=== PATIENT | male | born 1965 | race African-American/Black ===

== ENCOUNTER 2017-02-28 05:42 | Day surgery (SDC) | payer BC ==
[2017-02-28] VITALS (12 sets, daily range): BP systolic 116–148; BP diastolic 56–89
[~2017-02-28] VITALS: Ht 177.8 cm; Wt 86.2 kg
[2017-02-28] MEDS ORDERED: AMLODIPINE BES2.5 MG ORAL (06:14)
[2017-02-28] MEDS ORDERED: NORVIR100 MG ORAL (06:14)
[2017-02-28] MEDS ORDERED: REYATAZ300 MG ORAL (06:14)
[2017-02-28] MEDS ORDERED: ACYCLOVIR200 MG ORAL (06:14)
[2017-02-28] MEDS ORDERED: Bupivacaine w/Epi 0.5% 30ml Vial INJ ONE (06:55)
[2017-02-28] MEDS ORDERED: LR 1000ml ONE (07:00)
[2017-02-28] MEDS ORDERED: Sterile Water Irrig 1000ml IRRIG ONE (07:00)
[2017-02-28] MEDS ORDERED: fentaNYL 100 mcg/2 mL IV ONE (07:00)
[2017-02-28] MEDS ORDERED: Midazolam 2mg/2ml Inj ONE (07:00)
[2017-02-28] MEDS ORDERED: NS Irrig 1000ml ONE (07:00)
[2017-02-28] MEDS ORDERED: Lidocaine 1% MPF 10mg/ml 5ml ONE (07:00)
[2017-02-28] MEDS ORDERED: Propofol 200mg/20ml IV ONE (07:00)
--- NOTE | 2017-02-28 07:21 | Pre-Procedure Note/Attestation ---
Pre-Procedure Note/Attestation Complete Prior to Procedure Procedure Narrative: excision left forehead soft tissue mass Indications for Procedure Pre-Operative Diagnosis: Left forehead soft tissue mass Attestation I attest that I discussed the nature of the procedure; its benefits; risks and complications; and alternatives (and the risks and benefits of such alternatives ), prior to the procedure, with the patient (or the patient's legal containers sales representative). I attest that, if there was a reasonable possibility of needing a blood transfusion, the patient (or the patient's legal containers sales representative) was given the [facility] standardized written summary, pursuant to the Valentin [place] Kay Blood Safety Act ([place] Health and Safety Code # 1645, as amended). I attest that I re-evaluated the patient just prior to the surgery and that there has been no change in the patient's H&P, except as documented below: NILDA STEARNS Feb 28, 2017 07:21
--- NOTE | 2017-02-28 07:48 | Anethesia Preoperative Eval ---
Anesthesia Pre-op PMH/ROS General Date of Evaluation: Feb 28, 2017 Time of Evaluation: 07:16 Anesthesiologist: Adele ASA Score: ASA 2 Mallampati Score Class I : Soft palate, uvula, fauces, pillars visible Class II: Soft palate, uvula, fauces visible Class III: Soft palate, base of uvula visible Class IV: Only hard plate visible Mallampati Classification: Class II Surgeon: Evelyn Diagnosis: L forehead mass Surgical Procedure: Excision of L face mass Anesthesia History: none Family History: no anesthesia problems Allergies: Coded Allergies: No Known Allergies (Unverified , 02/28/17) Medications: see eMAR Past Medical History Cardiovascular: Reports: HTN - mild Pulmonary: Denies: asthma, COPD, FIDE, other Gastrointestinal/Genitourinary: Reports: GERD - mild Neurologic/Psychiatric: Denies: dementia, CVA, depression/anxiety, TIA, other Endocrine: Reports: DM - borderline, Denies: hypothyroidism, steroids, other HEENT: Denies: cataract (L), cataract (R), glaucoma, [place] (L), [place] (R), other Hematology/Immune: Reports: other - HIV, Denies: anemia, DVT, bleeding disorder Musculoskeletal/Integumentary: Denies: OA, RA, DJD, DDD, edema, other PMH Narrative: as above PSxH Narrative: facial reconstruction Sx tracheotomy Anesthesia Pre-op Phys. Exam Physician Exam Last Vital Signs Date Time Temp Pulse Resp B/P (MAP) Pulse Ox O2 Delivery O2 Flow Rate FiO2 02/28/17 06:20 97.7 57 18 148/89 99 Room Air Constitutional: NAD Neurologic: CN 2-12 intact Cardiovascular: RRR, no M/R/G Respiratory: CTA Gastrointestinal: S/NT/ND Airway Exam Mallampati Score: Class II MO: full Neck: flexible ROM: full Teeth: intact Dentures: no upper, no lower Anesthesia Pre-op A/P Labs see chart Studies Pre-op Studies: EKG - NSR Risk Assessment & Plan Assessment: ASA 2 Plan: MAC Status Change Before Surgery: No Pre-Antibiotics Drug: Ancef 1 gr. Given Within 1 Hr of Incision: Yes Time Given: 07:42 NATALIA WALLS M.D. Feb 28, 2017 07:48
[2017-02-28] MEDS ORDERED: LR 1000ml 1,000 ML IVLG SCH (07:50)
[2017-02-28] MEDS ORDERED: Ketorolac 30mg Inj IV PRN (08:00)
[2017-02-28] MEDS ORDERED: DiphenhydrAMINE 50mg/ml Inj IVP PRN (08:00)
[2017-02-28] MEDS ORDERED: Meperidine 25mg/0.5ml Inj (FOR RIGORS ONLY) IV PRN (08:00)
--- NOTE | 2017-02-28 08:16 | Brief Operative Note ---
Immediate Post Operative Note Operative Note Pre-op Diagnosis: Left forehead soft tissue mass Procedure: excision left forehead soft tissue mass Post-op Diagnosis: same as pre-op Surgeon: rodney Anesthesiologist: Adele Anesthesia: general, local, MAC Specimen: yes Complications: none Condition: stable Fluids: lr Estimated Blood Loss: minimal Drains: none Implant(s) used?: No NILDA STEARNS Feb 28, 2017 08:16
--- NOTE | 2017-02-28 08:17 | Immediate Post-Op Evaluation ---
Immediate Post-Op Evalulation Immediate Post-Op Evalulation Procedure: Excision of L forehead mass Date of Evaluation: Feb 28, 2017 Time of Evaluation: 08:16 IV Fluids: 400 Blood Products: none Estimated Blood Loss: min Urinary Output: none Blood Pressure Systolic: 131 Blood Pressure Diastolic: 63 Pulse Rate: 58 Respiratory Rate: 20 O2 Sat by Pulse Oximetry: 99 Temperature (Fahrenheit): 97.6 Pain Score (1-10): 2 Nausea: No Vomiting: No Complications none Patient Status: awake, patent, none Hydration Status: adequate NATALIA WALLS M.D. Feb 28, 2017 08:17
[2017-02-28] MEDS ORDERED: Tylenol #3 tab (300mg/30mg) ORAL PRN (08:30)
--- NOTE | 2017-02-28 11:57 | 48 Hour Post Anesthesia Eval ---
Post Anesthesia Evaluation Procedure: Excision of L forehead mass Date of Evaluation: Feb 28, 2017 Time of Evaluation: 11:55 Blood Pressure Systolic: 128 0: 56 Pulse Rate: 72 Respiratory Rate: 20 Temperature (Fahrenheit): 97.6 O2 Sat by Pulse Oximetry: 99 Airway: patent Nausea: No Vomiting: No Pain Intensity: 1 Hydration Status: adequate Cardiopulmonary Status: stable Mental Status/LOC: patient returned to baseline Follow-up Care/Observations: n/a Post-Anesthesia Complications: none Follow-up care needed: ready to discharge NATALIA WALLS M.D. Feb 28, 2017 11:57
--- NOTE | 2017-03-02 08:00 | Operative Note - Dictated ---
Patient: Paige Lock DATE OF OPERATION: 02/28/2017 SURGEON: Fred Rivas M.D. [employer] SUPERVISOR: None. ANESTHESIA: A 1% local Xylocaine with epinephrine plus IV sedation. ANESTHESIOLOGIST: Chapin Angulo M.D. PREOPERATIVE DIAGNOSIS: Left forehead soft tissue mass. POSTOPERATIVE DIAGNOSIS: Left forehead soft tissue mass. NAME OF OPERATION: Excision of large left forehead soft tissue mass. Findings and Indications: The patient is a 51-year-old male with a history of a progressively enlarging left forehead soft tissue mass near the skin element and deep down to the galea. I advised the patient to undergo a resection, it was mobile over the galea and indeed it was an apparent sebaceous cysts with a punctum in the middle. The procedure was done uneventfully as described below. Procedure: With the patient lying in the supine position on the operating table, 1% local Xylocaine anesthesia with the left forehead region prepped and draped in usual sterile fashion with Betadine, an elliptical incision was carried out around the lesion and central punctum. Subcutaneous tissue was divided, and then the mass was carefully encircled in its entirety by blunt and sharp means obtaining hemostasis with the cautery. The area was irrigated and hemostasis adequate. The wound was then closed with 4-0 Vicryl subcutaneous and 5-0 Vicryl subcuticular interrupted sutures with excellent closure. Steri-Strips were applied. The patient tolerated the procedure well. Estimated blood loss was less than 5 mL. Sponge and needle counts were correct. He went to the recovery room in stable condition. Fred Rivas M.D. DR: ABNER JOB#: [id number] CC: SEBASTIAN
--- NOTE | 2017-03-12 18:00 | Operative Note - Dictated ---
DICTATION CANCELLED Fred Rivas M.D. DR: ABNER JOB#: [id number] CC:
== END 2017-02-28 09:50 | disposition home or self-care (01) ==
LOC: SUR 05:42
DX: L72.0 Epidermal cyst (principal); I10 Essential (primary) hypertension; K21.9 Gastro-esophageal reflux disease without esophagitis
CPT/HCPCS: 11446; 12051; J0690; J2250; J2704; J3010; J7120; 94003; 94150